=== PATIENT | male | born 1985 | race Caucasian/White ===

== ENCOUNTER 2020-02-05 15:02 | Emergency (ER) | payer SELFPAY ==
[2020-02-05 15:02] VITALS: BP 135/83; PULSE 90; RESP 14; TEMP 37.2; O2SAT 99
--- NOTE | 2020-02-05 15:17 | ED.GENADULT ---
HPI - General Adult General Chief complaint: Wound/Laceration Stated complaint: 34 YO male w/ lesion behind right ear that has been present for 2-3 months. Patient denies Fever, chills, but admits to wearing earplugs while at work daily. Denies earache, ST Related Data Allergies Allergy/AdvReac Type Severity Reaction Status Date / Time No Known Allergies Allergy Verified 02/05/20 15:14 Review of Systems Constitutional: Constitutional: Reports no additional constitutional complaints Eyes: Eyes: Reports no additional eye complaints ENT: Reports as per HPI Cardiovascular: Cardiovascular: Reports no additional cardiovascular complaints Respiratory: Respiratory: Reports no additional respiratory complaints Gastrointestinal: Gastrointestinal: Reports no additional gastrointestinal complaints Genitourinary: Genitourinary: Reports no additional male genitourinary complaints Musculoskeletal: Musculoskeletal: Reports no additional musculoskeletal complaints Integumentary/Breasts: Comments: Lesion behind right ear Neurologic: Reports system reviewed and no additional complaints, except as documented Psychiatric: Psychiatric: Reports no additional psychiatric complaints Endocrine: Endocrine: Reports no additional endocrine complaints Hematologic/Lymphatic: Hematologic/Lymphatic: Reports as per HPI Allergic/Immunologic: Allergic/Immunologic: Reports no additional allergic/immunologic complaints Exam Const: General: healthy appearing, no acute distress and alert; No confusion Orientation/consciousness: patient oriented x3 Limitations: No altered mental status HENMT: Ears: external ears normal, TM's normal bilaterally and EAC's normal General nose exam: Normal external nose present and Normal nares present Face and sinus: normal facial exam Mouth: Yes moist mucous membranes Throat: posterior oropharynx normal Other: R posterior auricular LN swelling measuring approx 1cm, mildly tender Eyes: Conjunctivae: conjunctivae normal Pupils: Equal, round and reactive pupils present Neck: Neck: lymphadenopathy right postauricular Chest: Chest palpation & inspection: normal inspection of the chest Resp: Effort & Inspection: normal respiratory effort Auscultation: clear to auscultation bilaterally Cardio: Rate: regular rate Rhythm: regular rhythm GI: Inspection: non-distended GI Palp: Yes Soft to palpation, No Tenderness to palpation present (GI) and No Guarding due to palpation present (GI) : General: Yes no CVA tenderness Skin: General skin exam: normal color Neuro: General: patient oriented x3, moves all extremities, no meningeal signs, no focal motor deficits and CN's II-XI intact bilaterally Cranial nerves: Yes Nystagmus not present Speech: normal speech Gait exam (Neuro): Normal gait present Extrem: General: normal to inspection Psych: Mental Status: mental status grossly normal Affect: normal affect Attitude: cooperative Thought content: Yes Normal thought content present Course Course Emergency Course: Start Po abx and f/u with pCP in 2 weeks for repeat examination Critical Care Time Critical Care Time Critical Care Time: No Discharge Plan Discharge Clinical Impression: Lymphadenopathy, periauricular Patient Disposition: Home, Self-Care Condition: Stable Instructions: Antibiotic Form Additional Instructions: F/U with PMD In 7-10 days Prescriptions: New cephalexin [Keflex] 500 mg capsule 500 mg PO Q6H 10 Days Qty: 40 RF: 0 Follow-up/Referrals: UNKNOWN,DOCTOR [Primary Care Provider] - Time of Disposition: 15:23
[2020-02-05 15:28] VITALS: PULSE 90; RESP 15; O2SAT 100
== END 2020-02-05 15:32 | disposition home or self-care (01) ==
PROVIDERS: Emergency Provider Family Medicine
DX: R59.0 Localized enlarged lymph nodes (principal)
CPT/HCPCS: 99283

== ENCOUNTER 2020-08-11 09:54 | Emergency (ER) | payer OTHER, SELFPAY ==
[2020-08-11 10:18] VITALS: BP 134/90; PULSE 70; RESP 18; TEMP 36.8; O2SAT 100
--- NOTE | 2020-08-11 10:50 | ED.GENADULT ---
HPI - General Adult General Chief complaint: Unspecified Stated complaint: rectal bleeding Time Seen by Provider: 08/11/20 10:50 History of Present Illness HPI narrative: He reports a few days of epigastric pain. This is a sharp pain with no radiation. Associated with nausea. He previously went to establish care with a PCP about 2 weeks ago and was started on prilosec. He also reports several weeks of BRB and mucous in his stools. He has never seen a GI doctor or had endoscopy. No dark stools. Related Data Allergies Allergy/AdvReac Type Severity Reaction Status Date / Time cat dander Allergy Watery Eye Verified 08/11/20 10:26 vinyl ether Allergy Swelling Verified 08/11/20 10:26 Review of Systems Review of Systems: All systems reviewed & are unremarkable except as noted in HPI and below Constitutional: Constitutional: Denies fever(s) ENT: Reports system reviewed and no additional complaints, except as documented Cardiovascular: Cardiovascular: Denies chest pain Respiratory: Respiratory: Denies dyspnea Gastrointestinal: Gastrointestinal: Reports as per HPI Genitourinary: Genitourinary: Reports no additional male genitourinary complaints Neurologic: Reports system reviewed and no additional complaints, except as documented Hematologic/Lymphatic: Hematologic/Lymphatic: Denies easy bleeding and Denies easy bruising Exam Const: General: no acute distress and alert Nutritional Appearance: thin Orientation/consciousness: patient oriented x3 HENMT: Head: normal to inspection Neck: Neck: normal visual inspection and no lymphadenopathy Chest: Chest palpation & inspection: no tenderness Resp: Effort & Inspection: normal respiratory effort Auscultation: clear to auscultation bilaterally, no rales, no rhonchi and no wheezes Cardio: Jugular venous distension: no JVD Rate: regular rate Rhythm: regular rhythm Heart sounds: no murmurs GI: Inspection: non-distended GI Palp: Yes Soft to palpation, Yes Tenderness to palpation present (GI) (epigastric) and No Guarding due to palpation present (GI) Skin: General skin exam: normal color Neuro: General: patient oriented x3 and moves all extremities Speech: normal speech Extrem: General: no edema Psych: Appearance: well kempt Affect: normal affect Course Vital Signs Vital signs: Vital Signs Temperature 36.8 C 08/11/20 10:18 Pulse Rate 70 08/11/20 10:18 Respiratory Rate 18 08/11/20 10:18 Blood Pressure 134/90 05/13/21 10:18 Pulse Oximetry 100 08/11/20 10:18 Temperature 36.8 C 08/11/20 10:18 Pulse Rate 78 08/11/20 13:00 Respiratory Rate 18 08/11/20 13:00 Blood Pressure 120/78 08/11/20 13:00 Pulse Oximetry 100 08/11/20 13:00 Medical Decision Making MDM Narrative Medical decision making narrative: Labs stable. He needs GI follow up. Dr. Akers consulted. He will see the patient in [place] for further evaluation. Differential Diagnosis Differential Diagnosis: PUD, GERD, gastritis, IBS, UC, crohn's Vital Signs Vital Signs: Vital Signs Temperature 36.8 C 08/11/20 10:18 Pulse Rate 70 08/11/20 10:18 Respiratory Rate 18 08/11/20 10:18 Blood Pressure 134/90 08/11/20 10:18 Pulse Oximetry 100 08/11/20 10:18 Temperature 36.8 C 08/11/20 10:18 Pulse Rate 78 08/11/20 13:00 Respiratory Rate 18 08/11/20 13:00 Blood Pressure 120/78 08/11/20 13:00 Pulse Oximetry 100 08/11/20 13:00 Lab Data Result diagrams: 08/11/20 11:47 08/11/20 12:49 Labs: Lab Results 08/11/20 08/11/20 08/11/20 Range/Units 11:47 11:47 12:49 WBC 8.3 (4.5-10.0) K/mm3 RBC 4.93 (4.6-6.20) M/mm3 Hgb 15.2 (14.0-18.0) g/dL Hct 45.8 (42.0-52.0) % MCV 92.9 (80-100) fl MCH 30.8 (26-34) pg MCHC 33.2 (32-36) g/dl RDW 13.4 (11.5-14.5) % Plt Count 333 (150-375) k/mm3 MPV 11.0 H (7.4-10.4) fl Immature Gran % (Auto) 0.2 (0-0.5) % Neut % (Auto) 5
[2020-08-11] MEDS: SODIUM CHLORIDE 0.9% IV 1,000 ML 999 ML IV CONT (11:45)
[2020-08-11 11:48] VITALS: PULSE 58; RESP 18; O2SAT 100
[2020-08-11 11:49] VITALS: BP 118/77
[2020-08-11 11:55] LABS: Basophils Percent Auto 0.5 % (0.2-1.2); Eosinophils Absolute Auto 0.2 K/mm3 (0-0.3); Eosinophils Percent Auto 2.7 % (0-4.4); Hematocrit 45.8 % (42.0-52.0); Hemoglobin 15.2 g/dL (14.0-18.0); Immature Granulocyte Absolute 0.02 K/mm3 (0.00-0.031); Immature Granulocyte Percent A 0.2 % (0-0.5); Lymphocytes Absolute Auto 2.39 K/mm3 (0.9-3.2); Mean Corpuscular HGB Conc 33.2 g/dl (32-36); Mean Corpuscular Hemoglobin 30.8 pg (26-34); Mean Corpuscular Volume 92.9 fl (80-100); Monocytes Absolute Auto 0.8 K/mm3 (0.1-0.6); Monocytes Percent Auto 9.3 % (2.6-8.5); Neutrophils Absolute Auto 4.8 K/mm3 (1.3-6.7); Neutrophils Percent Auto 58.3 % (45.5-73.1); Platelet Count Result 333 k/mm3 (150-375); Red Blood Count 4.93 M/mm3 (4.6-6.20); Red Cell Distribution Width 13.4 % (11.5-14.5); White Blood Count 8.3 K/mm3 (4.5-10.0)
[2020-08-11 12:13] LABS: Prothrombin Time 13.5 Seconds (11.1-14.7)
[2020-08-11 12:14] LABS: Partial Thromboplastin Time 26.9 SECONDS (22.3-36.8)
[2020-08-11 13:00] VITALS: BP 120/78; PULSE 78; RESP 18; O2SAT 100
[2020-08-11 13:18] LABS: Alanine Aminotransferase 13 U/L (4-50); Albumin Level 3.9 g/dL (3.5-5.1); Alkaline Phosphatase 52 U/L (38-126); Anion Gap 1 mmol/L (8-16); Aspartate Amino Transferase 25 U/L (17-59); Bilirubin,Total 0.1 mg/dL (0.2-1.3); Blood Urea Nitrogen 8 mg/dL (9-20); Calcium 8.6 mg/dL (8.4-10.2); Carbon Dioxide 29 mmol/L (22-30); Chloride 109 mmol/L (98-107); Estimated CRCL calculation 95 ml/min; Estimated Glomerular Filt Rate > 60; Glucose 90 mg/dL (75-110); Potassium 4.3 mmol/L (3.4-5.0); Sodium 139 mmol/L (137-145)
== END 2020-08-11 14:40 | disposition home or self-care (01) ==
PROVIDERS: Emergency Provider Emergency Medicine
DX: R10.13 Epigastric pain (principal); K62.5 Hemorrhage of anus and rectum
CPT/HCPCS: 36415; 80053; 85025; 85610; 85730; 96360; 99283; J7030

== ENCOUNTER → 2020-10-31 12:17 | Outpatient (CLI) | payer OTHER, SELFPAY ==
--- NOTE | ~2020-10-31 | XR_ITS ---
XR chest 2V DATE: 10/31/2020 12:41 INDICATION: Abnormal lung field findings on physical examination TECHNIQUE: Standing PA and lateral views COMPARISON: 02/10/2014 PA and lateral chest FINDINGS: Bilateral hyperinflation. Normal heart size. No hilar or mediastinal enlargement. No pulmon yandy infiltrate or consolidation, pleural effusion or pulmonary vascular congestion or pneumothorax. N ipple shadows are noted projecting over each mid lung field. IMPRESSION: Bilateral hyperinflation Reviewed, dictated and finalized at location B. IMPRESSION: Bilateral hyperinflation
== END ==
PROVIDERS: PCP Internal Medicine; Visit Provider Nurse Practitioner Family
DX: R91.8 Other nonspecific abnormal finding of lung field (principal)
CPT/HCPCS: 71046

== ENCOUNTER 2021-07-12 20:50 | Emergency (ER) | payer OTHER, SELFPAY ==
--- NOTE | ~2021-07-12 | XR_ITS ---
EXAM: XR knee LT 3V HISTORY: twisted left knee. limited movement COMPARISON: None available FINDINGS: Normal mineralization. No fracture or dislocation. No lytic or blastic lesion. Joint space s maintained. No erosion or periosteal change. Large volume joint fluid present. IMPRESSION: Large left knee joint effusion. No acute osseous finding in the left knee. Reviewed, dictated and finalized at location K.
[2021-07-12 21:00] VITALS: BP 140/100; PULSE 85; RESP 20; TEMP 36.2; O2SAT 98
[2021-07-12] MEDS: KETOROLAC (*BKC) 60 MG/2 ML VIAL IM (21:17)
--- NOTE | 2021-07-12 21:37 | ED.LOWEXIN ---
HPI - Extremity Injury (Lower) General Chief Complaint: Extremity Injury, Lower Stated Complaint: Lt leg injury Time Seen by Provider: 07/12/21 20:52 Source: patient and RN notes reviewed Mode of arrival: wheelchair Limitations: no limitations History of Present Illness complaint: knee injury Onset (ago): hour(s) (2) Type of Injury: hyperextension Place: street/outdoors Severity: moderate Severity scale (1-10): 8 Relieving factors: nothing Exacerbating factors: weight bearing and movement Context: fall Associated symptoms: snap/pop sensation, swelling and able to partially bear weight Related Data Allergies Allergy/AdvReac Type Severity Reaction Status Date / Time cat dander Allergy Watery Eye Verified 08/11/20 10:26 vinyl ether Allergy Swelling Verified 08/11/20 10:26 Review of Systems Review of Systems: All systems reviewed & are unremarkable except as noted in HPI and below [facility] Past Medical History Medical History (Updated 07/12/21 @ 21:46 by Viktor Ferris MD) Knee effusion, left Exam Const: General: no acute distress and alert Nutritional Appearance: thin Orientation/consciousness: patient oriented x3 Limitations: no limitations HENMT: Head: normal to inspection Ears: external ears normal, TM's normal bilaterally and EAC's normal General nose exam: Normal external nose present and Normal nares present Face and sinus: normal facial exam and sinuses nontender Mouth: Yes moist mucous membranes Throat: posterior oropharynx normal Eyes: General: appearance normal, both eyes and all related structures Visual Aparicio: normal visual aparicio by confrontation Conjunctivae: conjunctivae normal Pupils: Equal, round and reactive pupils present EOM: EOMs intact bilaterally Neck: Neck: normal visual inspection Chest: Chest palpation & inspection: normal inspection of the chest Resp: Effort & Inspection: normal respiratory effort Auscultation: clear to auscultation bilaterally Cardio: Rate: regular rate Rhythm: regular rhythm GI: GI Palp: Yes Soft to palpation and No Tenderness to palpation present (GI) Auscultation: normal bowel sounds : General: Yes bladder normal to palpation and Yes no CVA tenderness Back/Spine/Pelvis: Back: no CVA tenderness Skin: General skin exam: normal color Neuro: General: patient oriented x3, moves all extremities, no meningeal signs, no focal motor deficits and CN's II-XI intact bilaterally Extrem: General: normal to inspection and no pedal edema Psych: Appearance: grossly normal and well kempt Mental Status: mental status grossly normal Affect: normal affect Attitude: cooperative Thought content: Yes Normal thought content present Course Course Emergency Course: Pt was stable in the ED. Less painful Reevaluation(s) Reevaluation #1: VSS Date: 07/12/21 Time: 21:16 Vital Signs Vital signs: Vital Signs Temperature 36.2 C L 07/12/21 21:00 Pulse Rate 85 07/12/21 21:00 Respiratory Rate 20 07/12/21 21:00 Blood Pressure 140/100 H 07/12/21 21:00 Pulse Oximetry 98 07/12/21 21:00 Temperature 36.2 C L 07/12/21 21:46 Pulse Rate 75 07/12/21 21:46 Respiratory Rate 18 07/12/21 21:46 Blood Pressure 144/95 H 07/12/21 21:46 Pulse Oximetry 97 07/12/21 21:46 MDM - Extremity Injury (Lower) Differential Diagnosis Differential diagnosis: Likely acute internal derangement of knee Medical Records Attestation: I reviewed the patient's medical records. Imaging Data Radiologist's impression: See the report. Critical Care Time Critical Care Time Critical Care Time: No Total Critical Care Time: 0 Discharge Plan Discharge Clinical Impression: Knee effusion, left Patient Disposition: Home, Self-Care Condition: Stable Instructions: Antibiotic Form, Knee Sprain (ED) Additional Instructions: Home. May RTC prn. PMD in 1-2 days. Rx below. RICE. NWB on crutches. Prescriptions: New ibuprofen 800 mg tablet 80
[2021-07-12 21:46] VITALS: BP 144/95; PULSE 75; RESP 18; TEMP 36.2; O2SAT 97
== END 2021-07-12 21:56 | disposition home or self-care (01) ==
PROVIDERS: Emergency Provider Emergency Medicine; PCP Internal Medicine
DX: M25.462 Effusion, left knee (principal)
CPT/HCPCS: 73562; 96372; 99283; J1885; L1830

== ENCOUNTER 2022-06-16 17:35 | Emergency (ER) | payer OTHER, SELFPAY ==
[2022-06-16 17:38] VITALS: BP 158/89; PULSE 82; RESP 18; TEMP 36.6; O2SAT 99
[2022-06-16 17:50] VITALS: O2SAT 98
[2022-06-16] MEDS: ACETAMINOPHEN 500 MG TABLET 1000 MG PO (17:54)
[2022-06-16 18:26] LABS: Strep Group A RT-PCR DETECTED (Negative)
[2022-06-16 18:40] VITALS: BP 140/90; PULSE 80; RESP 20; TEMP 37.2; O2SAT 99
[2022-06-16 18:42] LABS: Influenza A QL RT-PCR Negative (Negative); Influenza B QL RT-PCR Negative (Negative); SARS-CoV-2 RNA PCR Negative (Negative)
[2022-06-16 18:43] LABS: RSV RNA, RT-PCR Negative (Negative)
--- NOTE | 2022-06-16 19:00 | ED.URI ---
HPI - URI/Sore Throat General Chief Complaint: Upper Respiratory Infection Stated Complaint: Sore throat Time Seen by Provider: 06/16/22 17:42 Source: patient and family Mode of arrival: ambulatory Limitations: no limitations History of Present Illness HPI Narrative: patient here today for sore throat body aches chills no fever no shortness of breath no audible wheezing currently no nausea or vomiting the patient is not short of breath and states that he was exposed to strep throat. MD elicited complaint: sore throat Onset (ago): day(s) Consistency: constant Severity: mild Context: sick contacts Related Data Allergies Allergy/AdvReac Type Severity Reaction Status Date / Time cat dander Allergy Watery Eye Verified 08/11/20 10:26 vinyl ether Allergy Swelling Verified 08/11/20 10:26 Review of Systems Review of Systems: All systems reviewed & are unremarkable except as noted in HPI and below PMFSH Past Medical History Medical History Knee effusion, left Exam Const: General: healthy appearing Nutritional Appearance: well nourished Orientation/consciousness: patient oriented x3 Limitations: no limitations HENMT: Head: normal to inspection Face and sinus: normal facial exam Mouth: Yes Normal oral and palatal mucosa present Eyes: Conjunctivae: conjunctivae normal Pupils: Equal, round and reactive pupils present Neck: Neck: normal visual inspection, no lymphadenopathy, no meningeal signs and lymphadenopathy Chest: Chest palpation & inspection: normal inspection of the chest Resp: Effort & Inspection: normal respiratory effort Cardio: Rate: regular rate GI: GI Palp: Yes Soft to palpation : General: Yes bladder normal to palpation Skin: General skin exam: normal color Rashes: no rashes Wounds: no wounds Neuro: General: patient oriented x3 and moves all extremities Extrem: General: normal to inspection Psych: Mental Status: mental status grossly normal Affect: normal affect Course Course Emergency Course: Strep positive, COVID RSV and influenza were negative patient did receive a dose of Tylenol Vital Signs Vital signs: Vital Signs Temperature 36.6 C 06/16/22 17:38 Pulse Rate 82 06/16/22 17:38 Respiratory Rate 18 06/16/22 17:38 Blood Pressure 158/89 H 06/16/22 17:38 Pulse Oximetry 99 06/16/22 17:38 Oxygen Delivery Room Air 06/16/22 17:38 Temperature 36.6 C 06/16/22 17:38 Pulse Rate 82 06/16/22 17:38 Respiratory Rate 18 06/16/22 17:38 Blood Pressure 158/89 H 06/16/22 17:38 Pulse Oximetry 98 06/16/22 17:50 Oxygen Delivery Room Air 06/16/22 17:50 MDM - URI/Sore Throat Lab Data Labs: Lab Results 06/16/22 06/16/22 Range/Units 17:47 17:47 Influenza A (RT-PCR) Negative (Negative) Influenza B (RT-PCR) Negative (Negative) RSV (RT-PCR) Negative (Negative) SARS-CoV-2 RNA (RT-PCR) Negative (Negative) Group A Strep (PCR) Detected A (Negative) Critical Care Time Critical Care Time Critical Care Time: No Discharge Plan Discharge Clinical Impression: Strep throat Patient Disposition: Home, Self-Care Condition: Stable Instructions: Antibiotic Form, Strep Throat (ED) Additional Instructions: medicine as prescribed and follow-up primary care physician if symptoms persist or worsen. Prescriptions: New amoxicillin 500 mg capsule 500 mg PO TID 10 Days Qty: 30 0RF Follow-up/Referrals: Mason,MD Andrea [Primary Care Provider] - Time of Disposition: 19:05
[2022-06-16] MEDS: AMOXICILLIN 500 MG CAPSULE PO (19:22)
[2022-06-16 19:24] VITALS: BP 110/80; PULSE 88; RESP 20; TEMP 37.2; O2SAT 96
== END 2022-06-16 19:26 | disposition home or self-care (01) ==
PROVIDERS: Emergency Provider Emergency Medicine; PCP Internal Medicine
DX: J02.0 Streptococcal pharyngitis (principal); Z20.822 Contact with and (suspected) exposure to COVID-19
CPT/HCPCS: 87637; 87651; 99283; A9270

== ENCOUNTER 2023-09-11 16:08 | Emergency (ER) | payer OTHER, SELFPAY ==
--- NOTE | ~2023-09-11 | XR_ITS ---
XR hand RT min 3V Ordering provider: Bar Brown MD History: . Partial amputation 4TH finger,CRUSHING INJURY,H/O 5TH FX . Comparison: July 27, 2013. FINDINGS: BONES: Fracture of the midshaft of the proximal phalanx of the fourth finger with medial angulation. The angulation is about 118 degrees medially and 90 degrees anteroposteriorly. JOINT SPACES: Well maintained. SOFT TISSUES: Unremarkable. IMPRESSION: Fracture in the midshaft of the proximal phalanx of the fourth finger with marked displacement of the bones. No other fractures seen. Reviewed, dictated and finalized at location A. IMPRESSION: Fracture in the midshaft of the proximal phalanx of the fourth finger with mariah ed displacement of the bones. No other fractures seen.
[2023-09-11 16:17] VITALS: BP 127/84; PULSE 85; RESP 18; TEMP 36.6; O2SAT 99
[2023-09-11] MEDS: TETANUS,DIPHTHERIA,AC PERTUSSIS ADULT 0.5 ML (ADACEL) IM (16:25)
[2023-09-11] MEDS: HYDROmorphone HCL INJ (*CRX) 2 MG/ML VIAL 0.5 MG IM (16:26)
[2023-09-11] MEDS: cefTRIAXone 1 GM, LIDOCAINE HCL 1% LOCAL INJ 2.1 ML IM (16:27)
[2023-09-11] MEDS: ONDANSETRON HCL ODT 4 MG TABLET PO (16:27)
--- NOTE | 2023-09-11 16:27 | ED.UPPEXIN ---
HPI - Extremity Injury (Upper) General Chief Complaint: Extremity Injury, Upper Stated Complaint: rt. ring finger broken Time Seen by Provider: 09/11/23 16:15 Source: patient Mode of arrival: ambulatory Limitations: no limitations History of Present Illness HPI narrative: 38-year-old male with a history of asthma and arthritis of his knees presents to the ER from his workplace with -- partial amputation of the right ring finger. The amputation is across his mid proximal phalanx. His finger got stuck between the steel pipe and the saw. no other injuries noted. Profuse bleeding from his right ring finger. No sensation distal to injury. complaint: injury to: right Onset (ago): hour(s) ( 1 hour ago) Other Extremity Injury: Right: fingers ( right hand ring finger) Other injuries: none Handedness: right Place: work Severity: severe Relieving factors: immobilization Exacerbating factors: movement of extremity Context: laceration and crush ( near total amputation of the right ring finger at the proximal phalanx) Associated symptoms: denies other symptoms Related Data Home Medications Medication Instructions Recorded Confirmed No Home Medications 09/11/23 09/11/23 Allergies Allergy/AdvReac Type Severity Reaction Status Date / Time cat dander Allergy Watery Eye Verified 09/11/23 16:18 vinyl ether Allergy Swelling Verified 09/11/23 16:18 Review of Systems Review of Systems: All systems reviewed & are unremarkable except as noted in HPI and below PMFSH Past Medical History Medical History (Updated 09/11/23 @ 16:54 by Bar Brown MD) Asthma Knee effusion, left Social History Social History (Updated 09/11/23 @ 16:31 by Bar Brown MD) Social History: smoker Exam Narrative: blood pressure stable Const: General: ill appearing Nutritional Appearance: well nourished Orientation/consciousness: patient oriented x3 Limitations: no limitations HENMT: Head: normal to inspection Ears: external ears normal Face/Nose/Sinus: Normal external nose present Face and sinus: normal facial exam Mouth: Yes Normal oral and palatal mucosa present Throat: posterior oropharynx normal Eyes: Conjunctivae: conjunctivae normal Pupils: Equal, round and reactive pupils present EOM: EOMs intact bilaterally Direct Ophthalmoscopy: no photophobia Neck: Neck: normal visual inspection, no lymphadenopathy and no meningeal signs Chest: Chest palpation & inspection: normal inspection of the chest Resp: Effort & Inspection: normal respiratory effort Auscultation: diminished lung sounds Cardio: Rate: regular rate Rhythm: regular rhythm GI: GI Palp: Yes Soft to palpation Auscultation: normal bowel sounds Other: no tenderness/ rigidity/rebound : General: Yes no CVA tenderness Back/Spine/Pelvis: Back: no CVA tenderness Skin: General skin exam: normal color Other: right ring finger partial amputation Neuro: General: patient oriented x3, moves all extremities, no meningeal signs, no focal motor deficits and CN's II-XI intact bilaterally Extrem: Other: near total amputation of the right ring finger at the proximal phalanx. No sensation distal to the injury. Cap refill is prolonged. Psych: Mental Status: mental status grossly normal Affect: normal affect Attitude: cooperative Course Course Emergency Course: Partial traumatic amputation of the right ring finger over the proximal phalanx- gave the patient Adacel , Rocephin, Dilaudid and Zofran. Will transfer the patient to [facility] hand specialist. Vital Signs Vital signs: Vital Signs Oxygen Delivery Room Air 09/11/23 16:08 Temperature 36.6 C 09/11/23 16:17 Pulse Rate 85 09/11/23 16:17 Respiratory Rate 18 09/11/23 16:17 Blood Pressure 127/84 09/11/23 16:17 Pulse Oximetry 99 09/11/23 16:17 Oxygen Delivery Room Air 09/11/23 16:17 MDM - Extremity Injury (Upper)
--- NOTE | 2023-09-11 16:57 | PC.NURSE ---
IMAGES PUSHED TO [facility]. DR PAZ HAS ACCEPTED PT FOR TRANSFER, SIG OTHER TO TRANSPORT.
[2023-09-11 16:59] VITALS: BP 126/70; PULSE 70; RESP 18; O2SAT 99
--- NOTE | 2023-09-11 17:01 | PC.NURSE ---
PT'S COLOR HAS RETURNED TO BASELINE, PER SIG OTHER. SKIN IS NOW WARM AND DRY. PT REPORTS PAIN HAS IMPROVED WITH SPLINTING AND MEDICATION.
--- NOTE | 2023-09-11 17:14 | PC.NURSE ---
PT IS AWARE HE IS NPO.
== END 2023-09-11 17:15 | disposition short-term general hospital (02) ==
PROVIDERS: Emergency Provider Internal Medicine Critical Care Medicine
DX: S68.124A Partial traumatic metacarpophalangeal amputation of right ring finger, initial encounter (principal); Z23 Encounter for immunization; W27.0XXA Contact with workbench tool, initial encounter; Y99.0 Civilian activity done for income or pay
CPT/HCPCS: 73130; 90471; 90715; 96372; 99284; A9270; J0696; J1170